=== PATIENT | male | born 1975 | race African-American/Black ===

== ENCOUNTER 2016-08-14 17:37 | Emergency (ER) | payer SELFPAY ==
--- NOTE | ~2016-08-14 | CR109 ---
[facility] A Service of [facility] & [facility] RADIOLOGY TEXT RESULTS PATIENT: PRAMOD FREEMAN SR LOCATION: CFTX : 75 UNIT #: [id number] AGE: [address]: Crow Hernandez SEX: M ORDER DR: [id number] [facility] [address] [place], [place] [address] [id number] MR#: [id number] Acc #: [id number] NAME: PRAMOD FREEMAN SR : 1975 SEX: M STUDY DATE/TIME: 08/14/2016 17:32 UNIT: CFTX ROOM: STUDY DESCRIPTION: CR Finger 2 View 2nd Rt Attending Physician: Crow Hernandez Ordering Physician: Bharati Price A.P.R.N. Primary Care Physician: No Primary Care Physician MEDICAL IMAGING REPORT This report is preliminary unless electronic signature is present EXAM Right finger series. DATE OF EXAM 08/14/2016 HISTORY Pain. FINDINGS AP, lateral and oblique radiographs of the right second digit are presented. Patient describes pain and swelling beginning 1 week ago playing baseball, finger jammed with ball. No traumatic fracture or malalignment. The joint spaces are intact. No soft tissue defect, subcutaneous air or radiodense foreign body. The visualized other bony and soft tissue structures are unremarkable. Dictated by... Fili Saldana M.D. THIS IS AN ELECTRONICALLY VERIFIED REPORT Fili Saldana M.D. at 08/20/2016 5:57 PM Nataliia TD: 08/14/2016 20:00 JOB #: [id number] MEDICAL IMAGING REPORT Page 1 of 1 COPY
[~2016-08-14 17:37] MED LIST: NAPROXEN PO
== END 2016-08-14 18:54 | disposition home or self-care (01) ==
LOC: CFTX 17:37
DX: S60.021A Contusion of right index finger without damage to nail, initial encounter (principal); F17.210 Nicotine dependence, cigarettes, uncomplicated; W22.8XXA Striking against or struck by other objects, initial encounter; Y92.098 Other place in other non-institutional residence as the place of occurrence of the external cause
CPT/HCPCS: 73140; 99283